=== PATIENT | male | born 1960 | race Caucasian/White ===

== ENCOUNTER → 2017-06-13 | Outpatient (CLI) | payer BC, OTHER ==
[~2017-06-13] MED LIST: ASPI1TAB PO; LIPI20TA PO
--- NOTE | 2017-06-13 12:29 | REP ---
Chest two views HISTORY: Cough Comparison: 12/02 The lungs are clear. The heart is normal in size. The pulmonary vasculature is normal in appearance. The bony structure is intact. IMPRESSION: No acute disease. Signed by Teddy Campoverde MD 06/13/2017 12:20 P
== END ==
LOC: M WUC 12:10
PROVIDERS: ATTEND Family Medicine
DX: R05 Cough (principal)

== ENCOUNTER 2019-10-25 07:51 | Day surgery (SDC) | payer BC, OTHER ==
[~2019-10-25] VITALS: Ht 182.9 cm; Wt 111.1 kg
[~2019-10-25 07:51] MED LIST changes: -ASPI1TAB PO; +ASPI81TA26 PO; +ATOR80TA59 PO; +LIDOCAINE 2% INJ 100 MG/5 ML SDV (FOR ANES.) As Ordered ONE; +LISI10TA4 PO; +NS 1,000 ML IV ONE; +OMEP-218 PO; +PROPOFOL 200 MG/20 ML VIAL As Ordered ONE; +fentaNYL 100 MCG/2 ML INJECTION (J3010) As Ordered ONE
[2019-10-25] MEDS ORDERED: LABETALOL HCL 100 MG/20 ML VIAL As Ordered ONE (08:31)
--- NOTE | 2019-10-25 08:37 | ROOR ---
Patient Name: Joo Banks Procedure Date: 10/25/2019 8:16 AM Date of : 1960 Age: 59 Room: [facility] Gender: Male Note Status: Finalized Procedure: Upper GI endoscopy Indications: Dysphagia, Follow-up of esophageal reflux Providers: Des Orozco Jr, MD Referring MD: Luis Salmeron MD Requesting Provider: Medicines: Propofol per Anesthesia Complications: No immediate complications. Procedure: Pre-Anesthesia Assessment: - Prior to the procedure, a History and Physical was performed, and patient medications and allergies were reviewed. The patient is competent. The risks and benefits of the procedure and the sedation options and risks were discussed with the patient. All questions were answered and informed consent was obtained. Patient identification and proposed procedure were verified by the physician and the nurse in the pre-procedure area and in the procedure room. Mental Status Examination: alert and oriented. Airway Examination: normal oropharyngeal airway and neck mobility. Respiratory Examination: clear to auscultation. CV Examination: normal. ASA Grade Assessment: II - A patient with mild systemic disease. After reviewing the risks and benefits, the patient was deemed in satisfactory condition to undergo the procedure. The anesthesia plan was to use moderate sedation / analgesia (conscious sedation). Immediately prior to administration of medications, the patient was re-assessed for adequacy to receive sedatives. The heart rate, respiratory rate, oxygen saturations, blood pressure, adequacy of pulmonary ventilation, and response to care were monitored throughout the procedure. The physical status of the patient was re-assessed after the procedure. The Endoscope was introduced through the mouth, and advanced to the second part of duodenum. The upper GI endoscopy was accomplished without difficulty. The patient tolerated the procedure well. Findings: The upper third of the esophagus, middle third of the esophagus and lower third of the esophagus were normal. LA Grade A (one or more mucosal breaks less than 5 mm, not extending between tops of 2 mucosal folds) esophagitis with no bleeding was found at the gastroesophageal junction. Biopsies were taken with a cold forceps for histology. The cardia, gastric fundus and gastric body were normal. Two non-bleeding linear gastric ulcers with pigmented material were found in the gastric antrum. Biopsies were taken with a cold forceps for histology. Patchy mild inflammation characterized by erythema, friability and granularity was found in the duodenal bulb. The first portion of the duodenum and second portion of the duodenum were normal. Impression: - Normal upper third of esophagus, middle third of esophagus and lower third of esophagus. - LA Grade A reflux esophagitis. Biopsied. - Normal cardia, gastric fundus and gastric body. - Non-bleeding gastric ulcers with pigmented material. Biopsied. - Duodenitis. - Normal first portion of the duodenum and second portion of the duodenum. Recommendation: - Discharge patient to home (ambulatory). - Return to my office in 2 weeks. - Refer to an ENT specialist at appointment to be scheduled. - Use sucralfate tablets 1 gram PO BID daily. Des Orozco MD Des Orozco Jr, MD 10/25/2019 8:37:34 AM Electronically signed by Des Orozco Jr, MD Number of Addenda: 0 Note Initiated On: 10/25/2019 8:16 AM Estimated Blood Loss: Estimated blood loss: none.
[2019-10-25 09:05] VITALS: BP 133/93
== END 2019-10-25 09:13 | disposition home or self-care (01) ==
LOC: M OPP 07:51
PROVIDERS: ATTEND Surgery
DX: K21.0 Gastro-esophageal reflux disease with esophagitis (principal); K25.9 Gastric ulcer, unspecified as acute or chronic, without hemorrhage or perforation; K29.80 Duodenitis without bleeding; R13.10 Dysphagia, unspecified; R05 Cough; G47.30 Sleep apnea, unspecified; Z79.82 Long term (current) use of aspirin; Z79.899 Other long term (current) drug therapy; Z95.5 Presence of coronary angioplasty implant and graft
CPT/HCPCS: 43239; 88305; J3010

== ENCOUNTER → 2020-09-21 | Outpatient (CLI) | payer BC, OTHER ==
[~2020-09-21] MED LIST changes: -LIDOCAINE 2% INJ 100 MG/5 ML SDV (FOR ANES.) As Ordered ONE; -NS 1,000 ML IV ONE; -PROPOFOL 200 MG/20 ML VIAL As Ordered ONE; -fentaNYL 100 MCG/2 ML INJECTION (J3010) As Ordered ONE
--- NOTE | 2020-09-24 16:38 | SLEEP ---
[facility] NOCTURNAL POLYSOMNOGRAPHY DATE: 09/21/2020 ORDERED BY: Emily Quinones NP Nocturnal polysomnography was performed for evaluation of sleep physiology in this patient with an abnormal nocturnal oximetry tracing and non-restorative sleep. Seven hours and 55 minutes of data were reviewed. There were 401.5 minutes of sleep identified. Sleep latency was normal at 11 minutes. REM latency was short at 55 minutes. Sleep architecture showed fragmentation. There were five REM cycles noted. Overall sleep efficiency was 85.2%. The electrocardiogram showed a sinus rhythm with an average heart rate of 62 beats per minute. EEG showed normal waveforms for wake and sleep. There were 242 respiratory events identified of ten seconds in duration or greater for an apnea hypopnea index of 36.2. The events were primarily obstructive, not exclusive to sleep stage, more frequent but not exclusive to the supine posture. Arousals from respiratory events occurred 6.4 times per hour and oxygen desaturations were seen into the 80s. There was some scattered limb activity and remaining measures of sleep physiology were normal. IMPRESSIONS: Obstructive sleep apnea syndrome (G47.33). Apnea hypopnea index 36.2. RECOMMENDATION: The patient should be encouraged to return [facility]. In the interim, alcohol and sedative avoidance should be practiced and caution exercised during the operation of motor vehicles. Luis Salmeron MD
== END ==
LOC: M SLEEP 20:00
PROVIDERS: ATTEND Nurse Practitioner Adult Health
DX: G47.30 Sleep apnea, unspecified (principal)

== ENCOUNTER → 2020-10-22 | Outpatient (CLI) | payer BC, OTHER ==
--- NOTE | 2020-10-23 13:58 | SLEEPCENT ---
NOCTURNAL POLYSOMNOGRAPHY CPAP TITRATION DATE: 10/22/2020 ORDERED BY: Emily Quinones NP Nocturnal polysomnography was performed for the titration of pressure therapy in this patient with severe obstructive sleep apnea syndrome with apnea-hypopnea index of 36.2. For testing a ResMed AirFit F20 full face mask of medium size was used, 4 cm of water pressure were applied to the circuit, and the lights were extinguished. 8 hours and 3 minutes of data were reviewed. There were 423 minutes of sleep identified. Sleep latency was normal at 11 minutes. REM latency was short at 55 minutes. Sleep architecture was good with 5 REM cycles. Overall sleep efficiency was 88.4%. The electrocardiogram showed a sinus rhythm with an average heart rate of 58 beats per minute. EEG showed normal waveforms for wake and sleep. Respiratory events were reasonably palliated with CPAP at a pressure of 11. Significant persistent limb activity was seen throughout the study. The limb movement arousal index, however, was low at 2.4. IMPRESSION: Obstructive sleep apnea syndrome (G47.33). RECOMMENDATION: Nightly use of pressure therapy 11 cm of water.
== END ==
LOC: M SLEEP 20:00
PROVIDERS: ATTEND Nurse Practitioner Adult Health
DX: G47.33 Obstructive sleep apnea (adult) (pediatric) (principal)

== ENCOUNTER → 2021-03-30 | Outpatient (CLI) | payer BC, OTHER ==
[~2021-03-30] MED LIST changes: +LISI10TA22 PO; -LISI10TA4 PO
--- NOTE | 2021-03-30 21:45 | REP ---
INDICATION: LOW BACK PAIN COMPARISON: 12/03/2005 TECHNIQUE: AP, lateral, bilateral oblique, and coned-down views of the lumbar spine. FINDINGS: Alignment and lordosis maintained. No acute fracture/compression injury or subluxation. Moderate multilevel degenerative changes include endplate sclerosis, very early marginal spurring, and facet hypertrophy. Minimal disc space narrowing at multiple levels cannot be excluded. IMPRESSION: Nonspecific moderate multilevel degenerative spondylosis. If the patient remains symptomatic consider MRI for further investigation. <Electronically signed by Joo Altman > 03/30/21 [id number]
== END ==
LOC: M WUC 15:13
PROVIDERS: ATTEND Family Medicine
DX: M54.5 Low back pain (principal)

== ENCOUNTER → 2021-04-13 | Outpatient (CLI) | payer BC, OTHER ==
--- NOTE | 2021-04-14 14:49 | SLEEPCENT ---
DATE: 04/13/2021 ORDERED BY: KATIE Palafox Nocturnal polysomnography was performed for the titration of pressure therapy in this patient with obstructive sleep apnea syndrome. For testing a [employer] full face mask of large size was used, 4 cm of water pressure were applied at the circuit, and the lights were extinguished. Seven hours and 58 minutes of data were reviewed. There were 368 minutes of sleep identified. Sleep latency was mildly prolonged at 28 minutes. REM latency was normal at 73 minutes. Sleep architecture was fairly well preserved. There were three REM cycles. Overall sleep efficiency was 77.9%. The electrocardiogram showed a sinus rhythm with an average heart rate of 60 beats per minute. EEG showed normal waveforms for wake and sleep. Respiratory events were best palliated with CPAP at a pressure of 7 and remaining measures of sleep physiology were normal. IMPRESSION: Obstructive sleep apnea syndrome (G47.33). RECOMMENDATION: Nightly use of pressure therapy 7 cm of water. cc: GILMA LEE MD
== END ==
LOC: M SLEEP 20:00
PROVIDERS: ATTEND Nurse Practitioner Adult Health
DX: G47.33 Obstructive sleep apnea (adult) (pediatric) (principal)

== ENCOUNTER → 2021-05-15 | Outpatient (CLI) | payer BC, OTHER ==
--- NOTE | 2021-05-16 18:19 | REPVR ---
PROCEDURE INFORMATION: Exam: MR Lumbar Spine Without Contrast Exam date and time: 05/15/2021 10:14 AM Age: 61 years old Clinical indication: Low back pain; Additional info: Disc displacement TECHNIQUE: Imaging protocol: Multiplanar magnetic resonance images of the lumbar spine without intravenous contrast. COMPARISON: CR SPINE LS COMPLETE 03/30/2021 3:28 PM FINDINGS: Vertebral body heights are maintained. No abnormal marrow signal. No cord compression. No abnormal cord signal. Conus medullaris terminates at the L1 level. Paravertebral soft tissues are unremarkable. L1-L2: No significant canal or foraminal narrowing. L2-L3: Broad-based disc bulge causes mild bilateral foraminal narrowing. No significant canal narrowing. L3-L4: Facet hypertrophy causes mild bilateral foraminal narrowing. No significant canal narrowing. L4-L5: Facet hypertrophy causes mild bilateral foraminal narrowing. No significant canal narrowing. L5-S1: No significant canal or foraminal narrowing. Soft tissues: See "Vertebrae" finding. IMPRESSION: Multilevel mild spondylotic changes of the lumbar spine, as detailed above. Electronically signed by: Johnnie Bell On 05/16/2021 18:18:28 PM
== END ==
LOC: M PLAIMG 09:06
PROVIDERS: ATTEND Family Medicine
DX: M51.26 Other intervertebral disc displacement, lumbar region (principal)

== ENCOUNTER → 2021-07-10 | Outpatient (REF) | payer OTHER | LOC: M WUC 19:41 | PROVIDERS: ATTEND Physician Assistant | DX: J02.9 Acute pharyngitis, unspecified (principal) ==

== ENCOUNTER → 2021-09-30 | Outpatient (CLI) | payer BC, OTHER | LOC: M LABSMTC 11:36 | PROVIDERS: ATTEND Anesthesiology | DX: Z01.812 Encounter for preprocedural laboratory examination (principal); Z20.822 Contact with and (suspected) exposure to COVID-19 ==

== ENCOUNTER 2021-10-05 11:16 | Day surgery (SDC) | payer BC, OTHER ==
[~2021-10-05] VITALS: Ht 180.3 cm; Wt 108.0 kg
[~2021-10-05 11:16] MED LIST changes: +LIDOCAINE 2% 100MG/5ML SDV (FOR ANES.) As Ordered ONE; +NS 1,000 ML IV ONE; +OMEP-173 PO; -OMEP-218 PO; +propofoL 200 MG/20 ML VIAL As Ordered ONE
[2021-10-05] MEDS ORDERED: fentaNYL 100 MCG/2 ML INJECTION As Ordered ONE (12:10)
[2021-10-05 13:07] VITALS: BP 122/86
== END 2021-10-05 13:10 | disposition home or self-care (01) ==
LOC: M OPP 11:16
PROVIDERS: ATTEND Surgery
DX: K62.5 Hemorrhage of anus and rectum (principal); K57.30 Diverticulosis of large intestine without perforation or abscess without bleeding; K44.9 Diaphragmatic hernia without obstruction or gangrene; R10.13 Epigastric pain; K21.9 Gastro-esophageal reflux disease without esophagitis; K25.9 Gastric ulcer, unspecified as acute or chronic, without hemorrhage or perforation; G47.30 Sleep apnea, unspecified; Z79.82 Long term (current) use of aspirin; Z79.899 Other long term (current) drug therapy; Z95.5 Presence of coronary angioplasty implant and graft
CPT/HCPCS: 43235; 45378; J3010

== ENCOUNTER → 2021-10-07 | Outpatient (CLI) | payer BC, OTHER ==
[~2021-10-07] MED LIST changes: -LIDOCAINE 2% 100MG/5ML SDV (FOR ANES.) As Ordered ONE; -NS 1,000 ML IV ONE; -OMEP-173 PO; +OMEP-218 PO; -propofoL 200 MG/20 ML VIAL As Ordered ONE
--- NOTE | 2021-10-08 14:47 | SLEEPCENT ---
DATE: 10/07/2021 ORDERED BY: Emily Quinones Nocturnal polysomnography was performed for the titration of pressure therapy in this patient with obstructive sleep apnea syndrome, apnea-hypopnea index of 36. For testing, the patient was fit with a ResMed AirFit F20 full-face mask of medium size. There was 5 cm of water pressure applied to the circuit, and the lights were extinguished. There was 7 hours and 56 minutes of data reviewed. There was 421 minutes of sleep identified. Sleep latency was mildly prolonged at 26 minutes. REM latency was short at 57.5 minutes. Sleep architecture was good with four REM cycles. Overall sleep efficiency was 89.3.%. The electrocardiogram shows a sinus rhythm with an average heart rate of 60 beats per minute. EEG showed normal waveforms for wake and sleep. Respiratory events were fully palliated with CPAP at a pressure of 8. Limb activity resulted in arousals 2.3 times per hour. IMPRESSION: Obstructive sleep apnea syndrome (G47.33). RECOMMENDATION: Night use of pressure therapy, 8 cm of water.
== END ==
LOC: M SLEEP 20:00
PROVIDERS: ATTEND Nurse Practitioner Adult Health
DX: G47.33 Obstructive sleep apnea (adult) (pediatric) (principal)

== ENCOUNTER → 2022-06-15 | Outpatient (CLI) | payer BC, OTHER ==
[~2022-06-15] MED LIST changes: +OMEP-173 PO; -OMEP-218 PO
== END ==
LOC: M PLAIMG 14:31
PROVIDERS: ATTEND Family Medicine
DX: R07.9 Chest pain, unspecified (principal)

== ENCOUNTER → 2022-08-05 | Outpatient (CLI) | payer BC, OTHER | LOC: M RAD 08:43 | PROVIDERS: ATTEND Family Medicine | DX: K40.90 Unilateral inguinal hernia, without obstruction or gangrene, not specified as recurrent (principal) ==

== ENCOUNTER → 2023-03-03 | Outpatient (CLI) | payer BC, OTHER | LOC: M PLAIMG 14:16 | PROVIDERS: ATTEND Family Medicine | DX: M54.2 Cervicalgia (principal); M25.511 Pain in right shoulder ==

== ENCOUNTER → 2023-11-22 | Outpatient (CLI) | payer BC, OTHER ==
[~2023-11-22] MED LIST changes: +E-Z-GAS II EFFERVESCENT PACKET (SODIUM BICARB./CITRIC ACID/SIMETHICONE) As Ordered ONE; +E-Z-HD 98% w/w 340GM SUSP BTL As Ordered ONE; +E-Z-PAQUE 96% w/w SUSP 176GM BTL As Ordered ONE
== END ==
LOC: M RAD 08:09
PROVIDERS: ATTEND Family Medicine
DX: R10.13 Epigastric pain (principal); K44.9 Diaphragmatic hernia without obstruction or gangrene

== ENCOUNTER → 2023-12-12 | Outpatient (CLI) | payer BC, OTHER ==
[~2023-12-12] MED LIST changes: -E-Z-GAS II EFFERVESCENT PACKET (SODIUM BICARB./CITRIC ACID/SIMETHICONE) As Ordered ONE; -E-Z-HD 98% w/w 340GM SUSP BTL As Ordered ONE; -E-Z-PAQUE 96% w/w SUSP 176GM BTL As Ordered ONE
== END ==
LOC: M PLAIMG 14:52
PROVIDERS: ATTEND Family Medicine
DX: R05.9 Cough, unspecified (principal)

== ENCOUNTER → 2024-10-18 | Outpatient (CLI) | payer BC, OTHER | LOC: M WUC 16:00 | PROVIDERS: ATTEND Physician Assistant | DX: S13.4XXA Sprain of ligaments of cervical spine, initial encounter (principal); X58.XXXA Exposure to other specified factors, initial encounter; Y92.9 Unspecified place or not applicable ==

== ENCOUNTER → 2024-12-10 | Outpatient (CLI) | payer BC ==
[~2024-12-10] MED LIST changes: +E-Z-GAS II EFFERVESCENT PACKET (SODIUM BICARB./CITRIC ACID/SIMETHICONE) As Ordered ONE; +E-Z-HD 98% w/w 340GM SUSP BTL As Ordered ONE; +E-Z-PAQUE 96% w/w SUSP 176GM BTL As Ordered ONE
== END ==
LOC: M RAD 09:00
PROVIDERS: ATTEND Otolaryngology
DX: R13.10 Dysphagia, unspecified (principal)

== ENCOUNTER → 2024-12-11 | Outpatient (CLI) | payer BC ==
[~2024-12-11] MED LIST changes: -E-Z-GAS II EFFERVESCENT PACKET (SODIUM BICARB./CITRIC ACID/SIMETHICONE) As Ordered ONE; -E-Z-HD 98% w/w 340GM SUSP BTL As Ordered ONE; -E-Z-PAQUE 96% w/w SUSP 176GM BTL As Ordered ONE
== END ==
LOC: M RAD 12:20
PROVIDERS: ATTEND Nurse Practitioner
DX: M54.12 Radiculopathy, cervical region (principal); M50.30 Other cervical disc degeneration, unspecified cervical region

== ENCOUNTER → 2025-08-20 | Outpatient (CLI) | payer BC | LOC: M CARPUL 06:44 | PROVIDERS: ATTEND Nurse Practitioner Family | DX: Z01.810 Encounter for preprocedural cardiovascular examination (principal); I25.10 Atherosclerotic heart disease of native coronary artery without angina pectoris; R94.31 Abnormal electrocardiogram [ECG] [EKG] | CPT/HCPCS: 78452; 93017; A9500; J2785 ==